=== PATIENT | male | born 1985 | race Caucasian/White ===

== ENCOUNTER 2017-09-23 06:18 | Emergency (ER) | payer OTHER ==
[2017-09-23] MEDS: IV NORMAL SALINE 1000ML BAG 1,000 ML IV ×2 (06:43→07:02)
[2017-09-23 07:01] LABS: ANION GAP 12 (6-14); BLOOD UREA NITROGEN 8 mg/dL (8-26); CALCIUM 8.9 mg/dL (8.5-10.1); CARBON DIOXIDE 26 mmol/L (21-32); CHLORIDE 103 mmol/L (98-107); GFR 88.3; GLUCOSE 158 mg/dL (70-99); POTASSIUM 3.3 mmol/L (3.5-5.1); SODIUM 141 mmol/L (136-145)
[2017-09-23 07:12] LABS: TROPONINI < 0.017 ng/mL (0.000-0.055)
== END 2017-09-23 08:12 | disposition home or self-care (01) ==
LOC: ER 06:18
DX: R42 Dizziness and giddiness (principal); R00.2 Palpitations; R11.2 Nausea with vomiting, unspecified
CPT/HCPCS: 36415; 80048; 84484; 93005; 96361; 96374; 99285-25; J2060; J7030

== ENCOUNTER 2017-09-23 09:21 | Emergency (ER) | payer OTHER ==
[2017-09-23] MEDS: ONDANSETRON ODT 4 MG TAB.RAPDIS. PO (10:42)
== END 2017-09-23 12:36 | disposition home or self-care (01) ==
LOC: ER 12:36
DX: F15.10 Other stimulant abuse, uncomplicated (principal); F10.10 Alcohol abuse, uncomplicated; F12.10 Cannabis abuse, uncomplicated
CPT/HCPCS: 93005; 96372; 99283; J2060; Q0162